=== PATIENT | male | born 1990 | race Caucasian/White ===

== ENCOUNTER 2023-10-19 09:13 | Emergency (ER) | payer OTHER, SELFPAY ==
[2023-10-19 09:31] VITALS: BP 146/94; PULSE 70; RESP 16; TEMP 37.1; O2SAT 100
--- NOTE | 2023-10-19 09:46 | ED.ABDPAIN ---
HPI - Abdominal Pain General Chief Complaint: Abdominal Pain Stated Complaint: abdominal pains Time Seen by Provider: 10/19/23 09:47 Source: patient Mode of arrival: ambulatory Limitations: no limitations History of Present Illness HPI narrative: 33 yo M presents with c/o worsening of acid reflux symptoms over the past week. pt states has had reflux symptoms for about 10 years . Has never seen a doctor for this problem. Takes OTC omeprazole and sometimes chews pepcid when symptoms worse. has been chewing the pepcid and helps but then reflux symptoms come right back. Wakes up in the morning or in middle of the night with lava feeling in throat . Intermittent sharp epigastric pain. None at this time. think i might have an ulcer . does not have a PCP. Pt well appearing. All systems reviewed and negative except as noted above. Review of Systems Review of Systems: CONSTITUTIONAL: Denies fever, chills, or sweats. EYES: Denies visual changes, redness, or discharge. ENT: Denies rhinorrhea, congestion, sore throat, or otalgia. CARDIOVASCULAR: Denies chest pain, palpitations, or edema. RESPIRATORY: Denies cough or dyspnea. GASTROINTESTINAL: Reports intermittent epigastric abdominal pain, indigestion, burning to throat. Denies nausea, vomiting, or diarrhea. GENITOURINARY: Denies dysuria or hematuria. SKIN: Denies rash or itching. MUSCULOSKELETAL: Denies back pain, joint pain, or myalgia. NEUROLOGIC: Denies headache, numbness, or weakness. PSYCHIATRIC: Denies anxiety or depression. All other systems reviewed are negative, except as documented in HPI. PMFSH Comments At time of signature, agree with nursing past medical, surgical, social and family history. There is no relevant family history pertinent to the presenting complaint. Exam Narrative: GENERAL: This is a well-nourished, well-developed patient, in no apparent distress. HEAD: normocephalic, atraumatic. EYES: PERRL. Sclera clear/white. Vision is grossly intact. EARS: External ears normal NOSE: External nose normal NECK: Neck supple, non-tender without lymphadenopathy, masses or thyromegaly. CARDIOVASCULAR: Regular rate and rhythm without murmurs, gallops, or rubs. RESPIRATORY: Clear to auscultation. Breath sounds equal bilaterally. No wheezes, rales, or rhonchi. GASTROINTESTINAL: Abdomen soft, non-tender, nondistended. Bowel sounds are active. No hepato-splenomegaly, or palpable masses. No guarding. SKIN: warm, Dry, intact with no suspicious lesions or rash, good texture and turgor. NEURO: awake, alert, and oriented to person, place and time. There were no obvious focal neurologic abnormalities. EXTREMITIES: No joint tenderness, effusion, or edema noted. Course Course Level of Care: Express Care Visit Vital Signs Vital signs: Vital Signs Temperature 37.1 C 10/19/23 09:31 Pulse Rate 70 10/19/23 09:31 Respiratory Rate 16 10/19/23 09:31 Blood Pressure 146/94 H 10/19/23 09:31 Pulse Oximetry 100 10/19/23 09:31 Oxygen Delivery Room Air 10/19/23 09:31 Temperature 37.1 C 10/19/23 09:31 Pulse Rate 70 10/19/23 09:31 Respiratory Rate 16 10/19/23 09:31 Blood Pressure 146/94 H 10/19/23 09:31 Pulse Oximetry 100 10/19/23 09:31 Oxygen Delivery Room Air 10/19/23 09:31 reviewed MDM - Abdominal Pain MDM Narrative Medical decision making narrative: no abdominal tenderness on exam. Will refer patient to GI specialist. Stop omeprazole and start Protonix. Patient nontoxic, well appearing. Patient is aware of diagnosis, understands and agrees to treatment plan. Anticipatory guidance given. Patient agrees to follow-up as directed and is aware of reasons to seek care at the emergency department. Portions of this record may have been created with voice recognition software Differential Diagnosis Differential diagnosis: Likely abdominal pain, gastroenteritis, pancreatitis and other ( GERD) Discharge Plan Discharge Cl
== END 2023-10-19 10:10 | disposition home or self-care (01) ==
PROVIDERS: Emergency Provider Nurse Practitioner Family
DX: K30 Functional dyspepsia (principal)
CPT/HCPCS: 99213; G0463